=== PATIENT | male | born 2000 | race Caucasian/White ===

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

== ENCOUNTER → 2018-07-29 | Emergency (ER) | payer MEDICAID ==
[2018-07-29 00:36] VITALS: BP 138/106
== END ==
DX: R10.9 Unspecified abdominal pain (principal); Z53.21 Procedure and treatment not carried out due to patient leaving prior to being seen by health care provider